=== PATIENT | male | born 1970 | race Caucasian/White ===

== ENCOUNTER 2020-11-15 00:02 | Emergency (ER) | payer SELFPAY | END 2020-11-15 02:48 | disposition left against medical advice (07) | LOC: ER1 00:02 | DX: Z53.21 Procedure and treatment not carried out due to patient leaving prior to being seen by health care provider (principal) ==

== ENCOUNTER 2021-11-20 03:00 | Emergency (ER) | payer BC ==
[2021-11-20] MEDS ORDERED: TORADOL 10 MG T10 MG PO (04:01)
[2021-11-20] MEDS ORDERED: AMOX TR-K CLV1 EAC4 PO (04:01)
[2021-11-21] MEDS ORDERED: CLINDAMYCIN HC300 MG PO (22:55)
[2021-11-21] MEDS ORDERED: NAPROSYN500 MG PO (22:55)
== END 2021-11-20 04:22 | disposition home or self-care (01) ==
LOC: ER1 03:00
DX: K08.89 Other specified disorders of teeth and supporting structures (principal); F17.210 Nicotine dependence, cigarettes, uncomplicated
CPT/HCPCS: 96374; 96375; 99283; J1885; J2270

== ENCOUNTER 2021-11-21 22:34 | Emergency (ER) | payer BC ==
[~2021-11-21 22:34] MED LIST: AMOX TR-K CLV1 EAC4 PO; TORADOL 10 MG T10 MG PO
[2021-11-21] MEDS ORDERED: NAPROSYN500 MG PO (22:55)
[2021-11-21] MEDS ORDERED: CLINDAMYCIN HC300 MG PO (22:55)
== END 2021-11-22 00:50 | disposition home or self-care (01) ==
LOC: ER1 22:34
DX: K04.7 Periapical abscess without sinus (principal)
CPT/HCPCS: 99283